=== PATIENT | male | born 1965 | race Caucasian/White ===

== ENCOUNTER 2020-04-02 11:45 | Inpatient (IN) ==
[2020-04-02] MEDS ORDERED: IBUPROFEN 600 MG TAB PO STA (12:09)
[2020-04-02] MEDS ORDERED: BACITRACIN OINT 15 GM TUBE EXT ONE (12:09)
[2020-04-02] MEDS ORDERED: DIPHTHERIA/TETANUS/PERTUSSIS 0.5 ML SYR/VIAL IM ONE (12:11)
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
--- NOTE | 2020-04-02 13:20 | XRay Report ---
XR femur LT 2V routine, XR knee LT 1 or 2V routine, XR tibia fibula LT 2V CLINICAL HISTORY: Fall. Left lower extremity pain. COMPARISON STUDY: None. FINDINGS: The visualized pelvic bones are intact. There is a left total hip arthroplasty. The hardwar e is maintained. No abnormal periprosthetic lucency. No fracture or dislocation within the left hip o r left femur. Moderate left knee lipohemarthrosis. Comminuted and slightly displaced/depressed tibial plateau fractures. This involves both the medial and lateral tibial plateaus. The fractures demonstr ate up to 7 mm of posterior displacement and 4 mm of depression. The left fibula is intact. Soft tiss ue swelling within the left lower leg. IMPRESSION: 1. Comminuted and slightly displaced/depressed tibial plateau fractures as described above. 2. No fractures within the left hip or left femur. 3. Left knee lipohemarthrosis secondary to the tibial plateau fractures. ACT 112: Negative or not required by law. Electronically signed by: Wang Ridley M.D. 04/02/2020 1:18 PM
[2020-04-02 14:22] LABS: Hematocrit (blood only) 37.3 % (42-52); Hemoglobin 12.5 g/dL (14.0-18.0); Mean Corpuscular Hemoglobin 28.6 pg (25-34); Mean Corpuscular Hgb Conc 33.5 g/dL (32-36); Mean Corpuscular Volume 85.4 fL (80-100); Mean Platelet Volume 9.7 fL (7.4-10.4); Platelet Count 329 K/uL (130-400); RDW Standard Deviation 40.4 fL (36.4-46.3); Red Blood Count 4.37 M/uL (4.7-6.1); White Blood Count 10.13 K/uL (4.8-10.8)
[2020-04-02 14:37] LABS: Albumin Level 3.7 gm/dl (3.4-5.0); BUN Creatinine Ratio 13.5 (10-20); Creatinine Clr Calc Pharmacy 76.5 ml/min; Est GFR (African American) 86.1; Est GFR (Non-African American) 74.3; Potassium 3.8 mmol/L (3.5-5.1)
[2020-04-02 14:40] LABS: Bilirubin,Total 0.9 mg/dl (0.2-1); Globulin 3.5 gm/dl (2.5-4.0); Total Protein 7.2 gm/dl (6.4-8.2)
--- NOTE | 2020-04-02 15:25 | CT Scan Report ---
LEFT KNEE CT CT DOSE: 153.38 mGy.cm HISTORY: Left tibial plateau fracture. TECHNIQUE: Multiaxial CT images of the left knee were performed and reformatted in the sagittal and c oronal plane without the use of contrast. A dose lowering technique was utilized adhering to the veronica nciples of LYNN. COMPARISON: Left knee 04/02/2020. FINDINGS: Redemonstration of the comminuted and displaced/depressed bilateral tibial plateau fracture s. The fractures involve both the medial and lateral tibial plateaus as well as the tibial spines. Th e lateral tibial plateau fracture demonstrates up to 8 mm of depression posteriorly. The medial tibia l plateau fracture demonstrates up to 4 mm of depression. There is suggestion of a small impaction ty pe fracture within the lateral femoral condyle best seen on coronal image 64. This measures 5 mm. The tibial spines are fragmented from the comminuted fracture. The patella is well aligned and intact. N o fractures identified within the proximal fibula. The posterior lip of the lateral tubercle plateau fracture demonstrates up to 5 mm of posterior displacement. Moderate lipohemarthrosis. Soft tissue ed cristiane seen throughout the knee. IMPRESSION: 1. Comminuted and displaced/depressed bilateral tibial plateau fractures as described above. 2. Small impaction type fracture within the lateral femoral condyle measuring 5 mm. 3. Moderate lipohemarthrosis. ACT 112: Negative or not required by law. Electronically signed by: Wang Ridley M.D. 04/02/2020 3:24 PM
[2020-04-02] MEDS ORDERED: ONDANSETRON INJ 2 MG/ML 2 ML VIAL IV PRN (16:32)
[2020-04-02] MEDS: SODIUM CHLORIDE 0.9% 1000ML 1,000 ML IV SCH (16:38)
[2020-04-02] MEDS: OXYCODONE/ACETAMINOPHEN 5mg/325mg TAB PO PRN (16:39)
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
[2020-04-03] MEDS: OXYCODONE/ACETAMINOPHEN 5mg/325mg TAB PO PRN (02:59)
[2020-04-03] MEDS ORDERED: CEFAZOLIN 2000MG 2,000 MG/15 ML SYR IV SCH (06:00)
[2020-04-03] MEDS: SODIUM CHLORIDE 0.9% 1000ML 1,000 ML IV SCH ×4 (06:52→19:11)
[2020-04-03] MEDS ORDERED: ONDANSETRON INJ 2 MG/ML 2 ML VIAL IV PRN (08:56)
[2020-04-03] MEDS ORDERED: fentaNYL citrate 100 MCG/2 ML VIAL IV PRN (08:56)
[2020-04-03] MEDS ORDERED: ePHEDrine sulfate 50 MG/ML AMP IV PRN (08:56)
[2020-04-03] MEDS ORDERED: ATROPINE SULFATE 0.1 MG/ML 10ML SYR IV PRN (08:56)
[2020-04-03] MEDS ORDERED: HYDROmorphone INJ 1 MG/ML SYRINGE IV PRN (08:56)
--- NOTE | 2020-04-03 09:00 | Anesthesiology Consultation ---
Date of Service April 03, 2020 Right upper extremity aguilar. Assessment & Plan (1) Encounter for pre-operative examination: History Surgery Operation Date: 04/03/20 08:30 Proposed Procedures p ORIF Tibial Plateau Fracture(Left) - Layo Packer DO Height/Weight Height: 5 ft 6 in Weight: 81.1 kg Allergies Allergy/AdvReac Type Severity Reaction Status Date / Time No Known Allergies Allergy Unverified 04/02/20 13:19 Medications Home Medications Medication Instructions Recorded Confirmed Last Taken No Known Home Medications 04/02/20 04/02/20 Unknown Active Medications Generic Name Dose Route Start Last Admin Trade Name Freq PRN Reason Stop Dose Admin Sodium Chloride 1,000 mls @ 80 mls/hr 04/02/20 16:32 04/03/20 06:52 Nss 1000ml IV 05/02/20 16:31 80 mls/hr .[id number] CORWIN Administration Oxycodone/Acetaminophen 1 - 2 tab 04/02/20 16:32 04/03/20 02:59 Oxycodone/Acetaminophen 5mg/325mg Tab PO 04/16/20 16:31 2 tab Q4H PRN Administration Pain NPO Date Last Intake of Fluids: 04/03/20 Time Last Intake of Fluids: 00:00 Date Last Intake of Solids: 04/02/20 Time Last Intake of Solids: 20:00 Past Medical History Medical History (Updated 04/03/20 @ 09:01 by Aleksandra Farias MD) GERD (gastroesophageal reflux disease) Neuropathy Numbness in toes bilaterally. No significant past medical history Social History Smoking Status: Former smoker Hx Alcohol Use: No Hx Substance Use: No Physical Exam Vital Signs Last Vital Signs Temp 36.8 C 04/03/20 07:34 Pulse 102 H 04/03/20 07:34 Resp 16 04/03/20 07:34 BP 133/79 04/03/20 07:34 Pulse Ox 97 04/03/20 07:34 Testing Laboratory Results 04/02/20 14:04 04/02/20 14:04 Electrocardiogram Date: 04/02/20 Normal sinus rhythm Non-specific intra-ventricular conduction block Abnormal ECG No previous ECGs available
[2020-04-03] MEDS ORDERED: MIDAZOLAM HCL 1 MG/ML 2ML VIAL ONE (09:35)
[2020-04-03] MEDS ORDERED: fentaNYL citrate 100 MCG/2 ML VIAL ONE ×2 (09:35→10:54)
--- NOTE | 2020-04-03 09:46 | History & Physical Bridge Note ---
Date of Service April 03, 2020 History & Physical Bridge Note I have examined the patient, reviewed the History & Physical and in the interval since the performance of the History & Physical I have noted the following changes of clinical significance: no changes noted
[2020-04-03] MEDS ORDERED: BUPIVACAINE/EPINEPHRINE 0.25% 1:200,000 30 ML VIAL ONE (10:14)
[2020-04-03] MEDS ORDERED: ESMOLOL HCL INJ 10 MG/ML 10ML VIAL IV ONE (10:36)
[2020-04-03] MEDS ORDERED: NEOSTIGMINE METHYLSULFATE 5 MG/5 ML SYR ONE (10:36)
[2020-04-03] MEDS ORDERED: GLYCOPYRROLATE 0.2 MG/ML VIAL ONE (10:36)
[2020-04-03] MEDS ORDERED: ROCURONIUM BROMIDE 10 MG/ML 5 ML VIAL IV ONE (10:36)
[2020-04-03] MEDS ORDERED: PROPOFOL IV EMULSION 10 MG/ML 20 ML VIAL IV ONE (10:36)
[2020-04-03] MEDS ORDERED: LIDOCAINE HCL 2% 2 ML VIAL/AMP(20MG/ML) INFIL ONE (10:36)
[2020-04-03] MEDS ORDERED: ONDANSETRON INJ 2 MG/ML 2 ML VIAL ONE (10:36)
[2020-04-03] MEDS ORDERED: DEXAMETHASONE SOD INJ 4 MG/ML VIAL ONE (10:36)
[2020-04-03] MEDS ORDERED: HYDROmorphone INJ 2 MG/ML SYR/VIAL ONE (12:12)
--- NOTE | 2020-04-03 12:42 | Fluoroscopy Report ---
FL knee LT 1 or 2V HISTORY: 54 years-old Male ORIF LEFT TIBIAL PLATEAU FX COMPARISON: Left knee CT 04/02/2020 TECHNIQUE: 2 spot fluoroscopic images of the left knee were obtained utilizing 75.3 seconds fluorosco py time FINDINGS: Status post placement of the medial and lateral chest complaints with numerous cannulated screws fixa ting the previously noted acute bilateral tibial plateau fractures. There is improved near anatomic a lignment. The hardware appears intact. No unexpected retained radiopaque foreign body. Tricompartment al osteoarthritis of the knee. Expected postsurgical soft tissue swelling and deep tissue air. IMPRESSION: Fluoroscopic assistance as above. Please see operative report for further details. ACT 112: Negative or not required by law. The above report was generated using voice recognition software. It may contain grammatical, syntax o r spelling errors. Electronically signed by: Rohan Rosario M.D. 04/03/2020 12:41 PM
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
[2020-04-03] MEDS ORDERED: METOPROLOL TARTRATE 1 MG/ML VIAL IV ONE (14:13)
[2020-04-03] MEDS ORDERED: METOPROLOL TARTRATE 1 MG/ML VIAL IV STA (14:15)
--- NOTE | 2020-04-03 14:19 | XRay Report ---
XR tibia fibula LT 2V HISTORY: 54 years-old Male post op ORIF of the left tibia COMPARISON: Left knee radiographs 04/02/2020 TECHNIQUE: 2 views of the left tibia and fibula FINDINGS: ORIF of the acute and comminuted proximal tibial fracture with lateral and medial fixation plate and numerous cannulated screws. The superiormost elongated lateral approach screws partially extend throu gh the medial cortex. The hardware appears intact. Medial and lateral skin aurelia are noted along wi th expected postsurgical soft tissue swelling and deep tissue air. There is improved near anatomic al ignment. No unexpected retained foreign body. IMPRESSION: Improved alignment of the acute proximal tibial fracture status post ORIF. ACT 112: Negative or not required by law. The above report was generated using voice recognition software. It may contain grammatical, syntax o r spelling errors. Electronically signed by: Rohan Rosario M.D. 04/03/2020 2:18 PM
--- NOTE | 2020-04-03 14:48 | Anesthesiology Progress Note ---
Date of Service April 03, 2020 Anesthesia Post Procedure Vital Signs Vital Signs: Temp Pulse Pulse Pulse Resp BP BP 04/03/20 14:40 87 20 133/88 04/03/20 14:30 37.1 C 89 18 141/95 H 04/03/20 14:25 93 H 16 124/85 04/03/20 14:20 92 H 16 141/93 H 04/03/20 14:17 103 H 141/88 H 04/03/20 14:10 103 H 18 143/85 H 04/03/20 14:00 110 H 18 143/85 H 04/03/20 13:50 113 H 16 115/70 04/03/20 13:42 37.4 C 119 H 20 133/87 04/03/20 07:34 36.8 C 102 H 16 133/79 04/03/20 00:14 37.1 C 83 20 117/82 04/02/20 16:21 36.8 C 80 18 04/02/20 15:23 86 16 BP Pulse Ox 04/03/20 14:40 97 04/03/20 14:30 97 04/03/20 14:25 95 04/03/20 14:20 93 04/03/20 14:17 04/03/20 14:10 95 04/03/20 14:00 95 04/03/20 13:50 100 04/03/20 13:42 100 04/03/20 07:34 97 04/03/20 00:14 93 04/02/20 16:21 128/64 98 04/02/20 15:23 128/92 98 Pain Intensity Left Leg: Pain Intensity: 4 Transfer of Care Handoff Completed per policy Notes Mental Status: alert / awake / arousable and participated in evaluation Patient Amnestic to Procedure: Yes Nausea / Vomiting: adequately controlled Pain: adequately controlled Airway Patency, RR, SpO2: stable & adequate BP & HR: stable & adequate Hydration State: stable & adequate Anesthetic Complications: no major complications apparent and Pt Satisfied with anesthetic care
[2020-04-03] MEDS ORDERED: NALOXONE HCL 0.4 MG/1 ML VIAL/CARP IV PRN (14:59)
[2020-04-03] MEDS ORDERED: METOCLOPRAMIDE HCL INJ 5 MG/ML 2 ML VIAL IV PRN (14:59)
[2020-04-03] MEDS ORDERED: MAGNESIUM HYDROXIDE SUSP 30 ML UDC PO PRN (14:59)
[2020-04-03] MEDS ORDERED: bisacodyL 10 MG SUPP PR PRN (14:59)
[2020-04-03] MEDS: HYDROmorphone INJ 1 MG/ML SYRINGE IV PRN ×2 (15:43→20:25)
[2020-04-03] MEDS: ACETAMINOPHEN 500 MG TAB PO SCH ×2 (15:43→20:19)
[2020-04-03] MEDS ORDERED: SODIUM CHLORIDE 0.9% 1000ML 1,000 ML IV SCH (16:00)
[2020-04-03] MEDS: KETOROLAC 30 MG/ML VIAL IV SCH ×2 (17:25→23:37)
[2020-04-03] MEDS: CEFAZOLIN 1000MG 1,000 MG/7.5 ML SYR IV SCH (17:28)
[2020-04-03] MEDS: OXYCODONE HCL IR 5 MG TAB (IMMEDIATE RELEASE) PO PRN ×2 (18:38→23:37)
[2020-04-03] MEDS: DOCUSATE SODIUM 100 MG CAP PO SCH (20:19)
[2020-04-03] MEDS: SENNA 8.6 MG TAB PO SCH (20:19)
[2020-04-03] MEDS: ASPIRIN 81 MG ECTAB PO SCH (20:19)
[2020-04-04] MEDS: CEFAZOLIN 1000MG 1,000 MG/7.5 ML SYR IV SCH (01:53)
[2020-04-04] MEDS: HYDROmorphone INJ 1 MG/ML SYRINGE IV PRN ×4 (01:54→20:37)
[2020-04-04] MEDS: KETOROLAC 30 MG/ML VIAL IV SCH ×2 (06:13→11:57)
[2020-04-04] MEDS: ACETAMINOPHEN 500 MG TAB PO SCH ×3 (06:13→21:31)
[2020-04-04] MEDS: SODIUM CHLORIDE 0.9% 1000ML 1,000 ML IV SCH ×2 (06:14→18:18)
--- NOTE | 2020-04-04 06:36 | Electrocardiogram Report ---
Test Reason : Blood Pressure : / mmHG Vent. Rate : 097 BPM Atrial Rate : 097 BPM P-R Int : 156 ms QRS Dur : 126 ms QT Int : 366 ms P-R-T Axes : 061 034 050 degrees QTc Int : 464 ms Normal sinus rhythm Non-specific intra-ventricular conduction block Abnormal ECG No previous ECGs available Confirmed by Chai Bishop ([id number]) on 04/04/2020 6:36:01 AM Referred By: REFERRED SELF Confirmed By:Chai Bishop
[2020-04-04] MEDS ORDERED: dexAMETHasone 4 MG TAB PO SCH (08:00)
--- NOTE | 2020-04-04 08:31 | Orthopedic Progress Note ---
Date of Service April 04, 2020 Assessment & Plan (1) Tibial plateau fracture, left: Overall is doing very well. He is not having too much pain in the knee at this point. He will be seen by physical therapy today for ambulation. He is to be nonweightbearing on that left leg. He lives in the [facility]. We will keep him in the hospital today for physical therapy and pain control. I will see him tomorrow morning, and if he is doing well, we will likely discharge him to home then. He is on aspirin for DVT prophylaxis. Present on Admission?: Yes Admission and Anticipated Discharge Date Admission Date: April 02, 2020 Justyn Beltre was seen and examined at bedside this morning. Overall he is doing fairly well. Is not having much pain in the left knee. He was able to get some sleep last night. He has no complaints. Physical Exam Musculoskeletal: On physical examination of the left knee, the dressing is clean and dry. His legs out in full extension. His knee immobilizer is in place. He has active dorsiflexion and plantarflexion of the left ankle. Results & Data ([facility]) Vital Signs (Past 12 Hours) Vital Signs Temp Pulse Resp BP Pulse Ox 04/04/20 07:33 36.9 C 92 H 18 131/73 96 04/04/20 03:10 37.0 C 92 H 16 137/77 96 04/03/20 23:10 36.5 C 88 16 123/83 98 Diagnostic Findings Postoperative x-rays of the left knee show the hardware to be in anatomic alignment without any evidence of complication. PG Care Time/CCT Total # of Minutes Spent Total Time Spent with Patient: Total time spent is greater than 50% in coordination of care (as documented) at patient's floor/unit and/or counseling patient: Coding Level of Care Code None Diagnoses Tibial plateau fracture, left S82.142A Encounter type: initial encounter Fracture type: closed (1) Tibial plateau fracture, left Encounter type: initial encounter Fracture type: closed Qualified Code(s): S82.142A - Displaced bicondylar fracture of left tibia, initial encounter for closed fracture
[2020-04-04] MEDS: MULTIVITAMIN TAB PO SCH (08:39)
[2020-04-04] MEDS: ASPIRIN 81 MG ECTAB PO SCH ×2 (08:39→21:29)
[2020-04-04] MEDS: DOCUSATE SODIUM 100 MG CAP PO SCH ×2 (08:40→21:30)
[2020-04-04] MEDS: OXYCODONE HCL IR 5 MG TAB (IMMEDIATE RELEASE) PO PRN ×4 (08:42→22:06)
[2020-04-04] MEDS ORDERED: CYCLOBENZAPRINE HCL 5 MG TAB PO SCH (21:00)
[2020-04-04] MEDS: SENNA 8.6 MG TAB PO SCH (21:30)
[2020-04-05] MEDS: OXYCODONE HCL IR 5 MG TAB (IMMEDIATE RELEASE) PO PRN ×3 (05:01→14:12)
[2020-04-05] MEDS: ACETAMINOPHEN 500 MG TAB PO SCH ×2 (05:02→14:11)
--- NOTE | 2020-04-05 07:01 | Orthopedic Progress Note ---
Date of Service April 05, 2020 Assessment & Plan (1) Tibial plateau fracture, left: Overall he is doing fairly well. Is not having too much pain in the left knee. He will be seen by physical therapy again today for ambulation. He is nonweightbearing on the left leg. He is on aspirin twice a day for DVT prophylaxis. He can be discharged later today. He will follow-up with an orthopedist in 2 weeks. Present on Admission?: Yes Admission and Anticipated Discharge Date Admission Date: April 02, 2020 Justyn Wang was seen and examined at bedside this morning. Overall he is doing fairly well. He is having a little bit of soreness in his left knee but not too bad. He was able to participate well with physical therapy. He has no complaints. Physical Exam Musculoskeletal: On physical examination of his left knee, the dressing is clean and dry. He is in a knee immobilizer. He does have active dorsiflexion and plantarflexion of his left ankle. Results & Data ([facility]) Vital Signs (Past 12 Hours) Vital Signs Temp Pulse Resp BP Pulse Ox 04/04/20 23:41 37.1 C 91 H 14 127/84 95 PG Care Time/CCT Total # of Minutes Spent Total Time Spent with Patient: Total time spent is greater than 50% in coordination of care (as documented) at patient's floor/unit and/or counseling patient: Coding Level of Care Code None Diagnoses Tibial plateau fracture, left S82.142A Encounter type: initial encounter Fracture type: closed (1) Tibial plateau fracture, left Encounter type: initial encounter Fracture type: closed Qualified Code(s): S82.142A - Displaced bicondylar fracture of left tibia, initial encounter for closed fracture
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
[2020-04-05] MEDS: MULTIVITAMIN TAB PO SCH (08:32)
[2020-04-05] MEDS: DOCUSATE SODIUM 100 MG CAP PO SCH (08:32)
[2020-04-05] MEDS: ASPIRIN 81 MG ECTAB PO SCH (08:33)
== END 2020-04-05 17:18 | disposition home or self-care (01) | DRG 494 ==
LOC: ED 11:45 → 3W 14:09